=== PATIENT | male | born 1980 | race Caucasian/White ===

== ENCOUNTER 2017-12-26 09:45 | Emergency (ER) | payer SELFPAY ==
[2017-12-26] MEDS ORDERED: Diazepam 5 MG TAB ONE (10:08)
[2017-12-26] MEDS ORDERED: HYDROcodone/Acetaminophen 5/325 mg Tablet ONE (10:08)
[2017-12-26] MEDS ORDERED: Acetaminophen 325 MG TAB ONE ×2 (10:09→10:10)
[2017-12-26] MEDS ORDERED: Ketorolac Tromethamine 60 MG/2 ML VIAL ONE (10:09)
== END 2017-12-26 10:38 | disposition home or self-care (01) ==
LOC: MADERS 09:45
DX: G89.29 Other chronic pain (principal); M54.5 Low back pain; Z79.899 Other long term (current) drug therapy
CPT/HCPCS: 96372; J1885

== ENCOUNTER 2018-02-05 22:59 | Emergency (ER) | payer SELFPAY ==
[~2018-02-05 22:59] MED LIST: Benzonatate 100 MG CAP ONE; Sulfameth/Trimethoprim DS 800-160mg TAB ONE
== END 2018-02-06 00:57 | disposition home or self-care (01) ==
LOC: MADERS 22:59
DX: J20.9 Acute bronchitis, unspecified (principal); Z79.899 Other long term (current) drug therapy
CPT/HCPCS: 99283

== ENCOUNTER 2018-03-26 06:23 | Emergency (ER) | payer SELFPAY ==
[2018-03-26] MEDS ORDERED: Sulfameth/Trimethoprim DS 800-160mg TAB ONE (06:58)
[2018-03-26] MEDS ORDERED: Ketorolac Tromethamine 60 MG/2 ML VIAL ONE (06:58)
== END 2018-03-26 07:15 | disposition home or self-care (01) ==
LOC: MADERS 06:23
DX: J06.9 Acute upper respiratory infection, unspecified (principal); M54.5 Low back pain; Z79.899 Other long term (current) drug therapy
CPT/HCPCS: 96372; J1885